=== PATIENT | male | born 2000 | race American Indian/Alaskan Native ===

== ENCOUNTER 2025-01-30 19:22 | Emergency (ER) | payer OTHER, SELFPAY ==
[2025-01-30 19:29] VITALS: BP 126/90; PULSE 105; RESP 16; TEMP 36.6; O2SAT 98
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
[2025-01-30] MEDS: LORazepam 2 MG/ML VIAL IVP (21:05)
[2025-01-30 21:18] VITALS: BP 104/62; PULSE 73; RESP 16; O2SAT 99
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
[2025-01-30 21:53] LABS: Red Blood Count 5.61 Miln/mm3 (4.50-5.90); White Blood Count 18.6 Thou/mm3 (3.8-10.6)
[2025-01-30 21:54] LABS: Basophils # (Auto) 0.1 Thou/mm3 (0.0-0.2); Basophils % (Auto) 0 % (0-2.5); Eosinophils # (Auto) 0.1 Thou/mm3 (0.0-0.5); Eosinophils % (Auto) 0 % (0-10); Hematocrit 49.1 % (41.0-53.0); Hemoglobin 18.7 g/dL (13.5-16.0); Immature Granulocytes % (Auto) 1 % (0-0); Lymphocytes % (Auto) 6 % (10-50); Mean Corpuscular HGB Conc 38.1 g/dl (31.0-37.0); Mean Corpuscular Hemoglobin 33.3 pg (25.0-35.0); Mean Corpuscular Volume 88 fL (80-100); Monocytes # (Auto) 0.7 Thou/mm3 (0.0-0.8); Monocytes % (Auto) 4 % (0-12); Neutrophils # (Auto) 16.7 Thou/mm3 (1.8-7.7); Neutrophils % (Auto) 90 % (37-80); Nucleated Red Blood Cell % 0 /100 WBC (0); Platelet Count 216 Thou/mm3 (140-440); RDW Standard Deviation 37.8 fL (35.1-43.9)
[2025-01-30 22:06] LABS: Partial Thromboplastin Time 25.3 Seconds (22.0-36.0); Prothrombin Time 11.3 Seconds (9.0-12.2)
[2025-01-30] MEDS: DIPHTH,PERTUSS(ACELL),TET VAC 0.5 ML SYR- ADULT IMi (22:13)
[2025-01-30 22:15] LABS: Alanine Aminotransferase 20 U/L (10-49); Albumin, Serum 5.6 gm/dL (3.5-5.0); Albumin/Globulin Ratio 1.9 (1.2-2.2); Alcohol, Blood Medical 199.4 mg/dL (0-10.0); Alkaline Phosphatase 89 U/L (46-116); Anion Gap 15 (7-16); Aspartate Amino Transferase 49 U/L (0-34); BUN/Creatinine Ratio 7 Ratio (12-20); Bilirubin,Total 1.9 mg/dL (0.3-1.2); Blood Urea Nitrogen 6 mg/dL (9-23); Calcium 9.7 mg/dL (8.3-10.6); Calcium (Corrected) 9.7 mg/dL (8.5-10.1); Carbon Dioxide 24.1 mMol/L (20.0-31.0); Chloride 105 mMol/L (98-107); Creatinine (Component) 0.9 mg/dL (0.6-1.3); Glucose 109 mg/dL (74-106); Osmolality,Calculated 285 (275-295); Potassium 3.7 mMol/L (3.4-5.1); Sodium 144 mMol/L (136-145); Total Protein 8.6 gm/dL (5.7-8.2); eGFR > 60 See Note
--- NOTE | 2025-01-30 22:17 | PC.NURSE ---
[id number], ACCEPTED TO [facility]BY , ER TO ER,REPORT #[phone], SPOKE TO INDER.
[2025-01-30] MEDS: TRANEXAMIC ACID 1,000 MG IVPB 1,000 MG/100 ML BAG 600 MG IV (22:34)
[2025-01-30 22:41] VITALS: BP 121/96; PULSE 58; RESP 19; TEMP 36.6; O2SAT 96
[2025-01-30] MEDS: levETIRAcetam INJ 100 MG/ML VIAL 5ML 1000 MG IVP (22:45)
[2025-01-30] MEDS: ONDANSETRON INJ 2 MG/ML INJ 2 ML 4 MG IV (22:45)
--- NOTE | 2025-01-30 22:53 | PC.NURSE ---
Report given to Lizzy at [facility].
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
== END 2025-01-30 23:05 | disposition short-term general hospital (02) ==
LOC: SERX 22:31
PROVIDERS: Registered Nurse General Practice; Emergency Provider Emergency Medicine
DX: S06.5X0A Traumatic subdural hemorrhage without loss of consciousness, initial encounter (principal); S19.9XXA Unspecified injury of neck, initial encounter; S49.92XA Unspecified injury of left shoulder and upper arm, initial encounter; F10.129 Alcohol abuse with intoxication, unspecified; X83.8XXA Intentional self-harm by other specified means, initial encounter; V87.8XXA Person injured in other specified noncollision transport accidents involving motor vehicle (traffic), initial encounter; Y90.6 Blood alcohol level of 120-199 mg/100 ml; Z75.1 Person awaiting admission to adequate facility elsewhere; Z23 Encounter for immunization
CPT/HCPCS: 36415; 70450; 72125; 73030; 80053; 80320; 85025; 85610; 85730; 90471; 90715; 99285; J1953; J2060; J2405; J3490; G0480